=== PATIENT | female | born 1950 | race Caucasian/White ===

== ENCOUNTER → 2020-04-07 13:02 | Outpatient (BNVA) | payer MEDICARE, SELFPAY | PROVIDERS: Visit Provider Internal Medicine Cardiovascular Disease | DX: I44.7 Left bundle-branch block, unspecified (principal); I10 Essential (primary) hypertension; I49.3 Ventricular premature depolarization | CPT/HCPCS: 93005; 99212 ==

== ENCOUNTER 2020-05-04 12:17 | Emergency (ER) | payer MEDICARE, SELFPAY ==
[2020-05-04 12:25] VITALS: BP 156/80; PULSE 86; RESP 18; TEMP 37.1; O2SAT 98
[2020-05-04 12:33] VITALS: BP 195/103; PULSE 81; RESP 18; TEMP 37.2; O2SAT 97; BMI 20.9
--- NOTE | 2020-05-04 13:39 | ECG_ITS ---
Test Reason : HIGH BP Blood Pressure : / mmHG Vent. Rate : 071 BPM Atrial Rate : 071 BPM P-R Int : 180 ms QRS Dur : 136 ms QT Int : 434 ms P-R-T Axes : 074 -03 091 degrees QTc Int : 471 ms Normal sinus rhythm Left bundle branch block Abnormal ECG When compared with ECG of 26-SEP-2019 10:41, Premature ventricular complexes are no longer Present Referred By: Linda Washington Electronically Signed By:ISABEL GRIFFIN
--- NOTE | 2020-05-04 14:02 | ED_ITS ---
HPI - General Adult General Chief complaint: Recheck/Abnormal Lab/Rx Stated complaint: flucuating blood pressure,dizzy Time Seen by Provider: 05/04/20 13:38 Source: patient Mode of arrival: ambulatory Limitations: no limitations History of Present Illness HPI narrative: 70 y/o female with history of HTN, PVFC's, LBBB presents to the ED with poorly controlled BP at home for the last 3 days. She states for the last 3 days she has needed to take additional metoprolol for BP 180's -190's at home. She was just seen by Dr. Shaw 1 month ago and her Toprol XL was increased from 25 to 50 mg. She occasionally takes 12.5 mg of immediate release metoprolol when she gets symptomatic hypertension. This includes slight dizziness and headache. She can tell when her blood pressure is elevated. She denies chest pain, vision changes, SOB. MD complaint: high blood pressure Onset (ago): day(s) (3) Location: head Radiation: non-radiation Severity: mild Pain Consistency: intermittent Relieving factors: rest Exacerbating factors: other (anxiety) Associated symptoms: headaches Treatments prior to arrival: none Related Data Previous Rx's Medication Instructions Recorded metoprolol succinate 50 mg 50 mg PO DAILY 90 Days #90 tab 03/24/20 tablet,extended release 24 hr amlodipine 5 mg PO DAILY #30 tab 05/04/20 Allergies Allergy/AdvReac Type Severity Reaction Status Date / Time No Known Allergies Allergy Intermediate UNKNOWN Unverified 10/29/19 14:50 [NO KNOWN ALLERGIES] Review of Systems Review of Systems: Constitutional: No Fever, No Chills ENT/Mouth: No sore throat, No Rhinorrhea, No Swallowing Difficulty Eyes: No Eye Pain, No Swelling, No Redness, No vision changes Cardiovascular: No Chest Pain, No SOB, No Orthopnea, No Edema Respiratory: No Cough, No Sputum, No Wheezing, No dyspnea Gastrointestinal: No Nausea, No Vomiting, No Diarrhea, No abdominal Pain Musculoskeletal: No joint pain, No Myalgias Skin: No Skin Lesions, No rash Neuro: No Weakness, No Numbness, + Dizziness, + Headache Psych: + Anxiety/Panic, No Depression Endocrine: No Polyuria, No Polydipsia PMFSH Past Medical History Attestation statement: The following information was validated with the patient. Medical History HTN (hypertension) Left bundle branch block PVCs (premature ventricular contractions) Family History Family History (Updated 04/05/20 @ 17:10 by Babita Enrique Preston) Father No problems noted. Mother No problems noted. Social History Social History Alcohol intake: current Alcohol intake frequency: 0-2 drinks per day Alcohol type: beer Smoking Status: Former smoker Smoked in Last 30 Days: No Use of substances other than those prescribed or required for medical reasons: No Advance Directives: No Advance Directives Information Provided: No Physical Exam Vital Signs: Vital Signs: Last Vital Signs Temp 98.9 F 05/04/20 14:16 Pulse 75 05/04/20 14:28 Resp 14 05/04/20 14:16 BP 160/80 H 05/04/20 14:28 Pulse Ox 96 05/04/20 14:16 Body Mass Index 20.9 Appearance: Alert. Oriented X3. No acute distress. Eyes: Pupils equal, round and reactive to light. ENT: Pharynx normal. Neck: Normal inspection. Neck supple. CVS: Normal heart rate and rhythm. Pulses normal. Respiratory: No respiratory distress. Breath sounds normal. Abdomen: Soft and nontender. +BS x4 Skin: Skin warm and dry. Normal skin color. Normal skin turgor. No rashes. Extremities: No lower extremity edema. Neuro: Oriented X 3. No motor deficit. No sensory deficit. Steady gait. Course Course Course Narrative: 70 y/o female with history of HTN on Toprol XL, recently increased to 50 mg daily presents to the ER with high BP for the last 3 days. Slight dizziness and headaches at home when it is 180-190's systolic. She has taken extra immediate release lopressor with improvement. BP 190/100 on arrival. NO chest pain or headache at this time. Slight dizziness when walking. Will get EKG and lab workup. She appears well and exam is normal. Will give PO amlodipine and reassess. Reevaluation(s) Reevaluation #1: BP improved to 150-160's systolic after 5 mg PO amlopidine. Will plan to add this to her regimen and have her follow up with her provider this week. She is agreeable with plan and is stable for discharge at this time. Medical Decision Making Lab Data Result diagrams: 05/04/20 14:14 05/04/20 14:14 Labs: Lab Results 05/04/20 05/04/20 05/04/20 Range/Units 14:14 14:14 14:14 WBC 4.9 (4.8-10.8) X10*3/uL RBC 4.32 (4.20-5.50) X10*6/uL Hgb 13.3 (12.0-16.0) g/dl Hct 37.9 (37-47) % MCV 87.7 (80-98) fL MCH 30.8 (27.0-33.0) pg MCHC 35.1 H (31.0-35.0) g/dl RDW 11.9 (11.0-16.0) % Plt Count 268 (160-400) X10*3/uL MPV 8.4 L (9.4-12.3) fL Immature Gran % (Auto) 0.2 (0.0-0.4) % Neut % (Auto) 74.8 H (45-73) % Lymph % (Auto) 18.5 L (20-40) % Mitchell % (Auto) 5.7 (2-11) % Eos % (Auto) 0.6 (0-4) % Baso % (Auto) 0.2 (0-2) % Lymph # (Auto) 0.9 L (1.2-4.9) X10*3/uL Mitchell # (Auto) 0.3 (0.1-1.2) X10*3/uL Eos # (Auto) 0.0 (0.0-0.4) X10*3/uL Baso # (Auto) 0.0 (0.0-0.2) X10*3/uL Abs Immat Gran (auto) 0.01 (0.00-0.03) X10*3/uL Absolute Neuts (auto) 3.7 (2.0-8.3) X10*3/uL Absolute Nucleated RBC 0.000 (0.0-0.012) X10*3/uL Nucleated RBC % (auto) 0.0 (0.0-0.2) /100WBC Hold Blue Top SEE NOTE Sodium 134 L (135-145) mmol/L Potassium 4.3 (3.3-5.1) mmol/L Chloride 99 (96-108) mmol/L Carbon Dioxide 24 (22-29) mmol/L Anion Gap 15 (12-20) BUN 10 (9-16) mg/dL Creatinine 0.70 (0.5-1.4) mg/dL Estim Creat Clear Calc 68.6 Estimated GFR > 60 Random Glucose 104 (60-115) mg/dL Calcium 8.8 (8.4-10.2) mg/dL Magnesium 2.2 (1.6-2.6) mg/dL Troponin I High Sens (<3.5-17.0) ng/L 05/04/20 Range/Units 14:14 WBC (4.8-10.8) X10*3/uL RBC (4.20-5.50) X10*6/uL Hgb (12.0-16.0) g/dl Hct (37-47) % MCV (80-98) fL MCH (27.0-33.0) pg MCHC (31.0-35.0) g/dl RDW (11.0-16.0) % Plt Count (160-400) X10*3/uL MPV (9.4-12.3) fL Immature Gran % (Auto) (0.0-0.4) % Neut % (Auto) (45-73) % Lymph % (Auto) (20-40) % Mitchell % (Auto) (2-11) % Eos % (Auto) (0-4) % Baso % (Auto) (0-2) % Lymph # (Auto) (1.2-4.9) X10*3/uL Mitchell # (Auto) (0.1-1.2) X10*3/uL Eos # (Auto) (0.0-0.4) X10*3/uL Baso # (Auto) (0.0-0.2) X10*3/uL Abs Immat Gran (auto) (0.00-0.03) X10*3/uL Absolute Neuts (auto) (2.0-8.3) X10*3/uL Absolute Nucleated RBC (0.0-0.012) X10*3/uL Nucleated RBC % (auto) (0.0-0.2) /100WBC Hold Blue Top Sodium (135-145) mmol/L Potassium (3.3-5.1) mmol/L Chloride (96-108) mmol/L Carbon Dioxide (22-29) mmol/L Anion Gap (12-20) BUN (9-16) mg/dL Creatinine (0.5-1.4) mg/dL Estim Creat Clear Calc Estimated GFR Random Glucose (60-115) mg/dL Calcium (8.4-10.2) mg/dL Magnesium (1.6-2.6) mg/dL Troponin I High Sens < 3.5 (<3.5-17.0) ng/L ECG Data Attestation: I personally reviewed and interpreted this ECG as follows: Prior ECG tracings: available for review Interpretation: normal sinus rhythm, HR 71 bpm, LBBB, normal MS interval, unchanged from prior Discharge Plan Discharge Clinical Impression: Poorly-controlled hypertension Patient Disposition: Home, Self-Care Instructions: Hypertensive Crisis (ED), Hypertension (ED) Additional Instructions: Your lab workup today was unremarkable. Your EKG was unchanged. Your blood pressure responded well to amlodipine 5 mg. A one month supply of this has been sent to your pharmacy. Please follow up with your doctor as soon as possible for further management of your blood pressure. Monitor your blood pressure 2x per day - once in the morning 2 hours after your medications and once in the evening. Stick to a low salt diet. If you develop chest pain, severe headache, dizziness, blurry vision or any other concerning symptom call 911 or come back to the ER for further evaluation. Prescriptions: New amlodipine 5 mg tablet 5 mg PO DAILY Qty: 30 RF: 0 No Action metoprolol succinate 50 mg tablet extended release 24 hr 50 mg PO DAILY 90 Days Qty: 90 RF: 1
[2020-05-04 14:16] VITALS: BP 162/84; PULSE 68; RESP 14; TEMP 37.2; O2SAT 96
[2020-05-04 14:22] LABS: Basophils Percent Auto 0.2 % (0-2); Eosinophils Percent Auto 0.6 % (0-4); Hematocrit 37.9 % (37-47); Hemoglobin 13.3 g/dl (12.0-16.0); Imm Gran Abs Auto 0.01 X10*3/uL (0.00-0.03); Imm Gran Pct Auto 0.2 % (0.0-0.4); Lymphocytes Absolute Auto 0.9 X10*3/uL (1.2-4.9); Lymphocytes Percent Auto 18.5 % (20-40); MANUAL DIFF FLAG NO; Mean Corpuscular HGB Conc 35.1 g/dl (31.0-35.0); Mean Corpuscular Hemoglobin 30.8 pg (27.0-33.0); Mean Corpuscular Volume 87.7 fL (80-98); Mean Platelet Volume 8.4 fL (9.4-12.3); Monocytes Absolute Auto 0.3 X10*3/uL (0.1-1.2); Monocytes Percent Auto 5.7 % (2-11); Neutrophils Absolute Auto 3.7 X10*3/uL (2.0-8.3); Neutrophils Percent Auto 74.8 % (45-73); Platelet Count 268 X10*3/uL (160-400); Red Blood Count 4.32 X10*6/uL (4.20-5.50); Red Cell Distribution Width 11.9 % (11.0-16.0); White Blood Count 4.9 X10*3/uL (4.8-10.8)
[2020-05-04 14:28] VITALS: BP 160/80; PULSE 75
[2020-05-04] MEDS: amLODIPine Besylate 5 MG TABLET PO (14:28)
--- NOTE | 2020-05-04 14:44 | PC.NURSE ---
amb to br with steady gait, ekg done meds given as ordered
[2020-05-04 14:49] LABS: Anion Gap 15 (12-20); Blood Urea Nitrogen 10 mg/dL (9-16); Calcium 8.8 mg/dL (8.4-10.2); Carbon Dioxide 24 mmol/L (22-29); Chloride 99 mmol/L (96-108); Creatinine Clr Calc Pharmacy 68.6; Estimated Glomerular Filt Rate > 60; Glucose Random 104 mg/dL (60-115); Magnesium 2.2 mg/dL (1.6-2.6); Potassium 4.3 mmol/L (3.3-5.1); Sodium 134 mmol/L (135-145)
[2020-05-04 14:54] LABS: Troponin-I High Sensitivity < 3.5 ng/L (<3.5-17.0)
== END 2020-05-04 15:43 | disposition home or self-care (01) ==
PROVIDERS: Physician Assistant; Emergency Provider Emergency Medicine
DX: R42 Dizziness and giddiness (principal); I10 Essential (primary) hypertension; Z79.899 Other long term (current) drug therapy; Z87.891 Personal history of nicotine dependence; Z91.14 Patient's other noncompliance with medication regimen
CPT/HCPCS: 36415; 80048; 83735; 84484; 85025; 93005; 99283; 99284

== ENCOUNTER 2020-09-30 10:51 | Emergency (ER) | payer MEDICARE, SELFPAY ==
--- NOTE | ~2020-09-30 | CT_ITS ---
EXAMINATION: CT abdomen pelvis w con CLINICAL INFORMATION: Reason for Exam LLQ pain COMPARISON: No prior CT available for comparison. TECHNIQUE: Multidetector volumetric imaging was performed from the superior aspect of the liver through the pubic symphysis 85 mL Omnipaque 350 injected. Sagittal and coronal reformatted images were obtained on the technologist's workstation. This CT examination was performed using dose optimization techniques as appropriate, variously including the following: *Automated exposure control *Adjustment of mA and/or kV according to patient size (this includes techniques or standardized protocols for targeted exams where dose is matched to indication/reason for exam; i.e. extremities or head) *Use of iterative reconstruction technique DLP: 1243 mGy-cm FINDINGS: LOWER THORAX: Included lung bases are clear. HEPATOBILIARY: No focal hepatic lesions. No biliary ductal dilatation. GALLBLADDER: There are gallstones. SPLEEN: Spleen is normal in size. PANCREAS: No focal mass or ductal dilatation. STOMACH AND GASTROINTESTINAL TRACT: Stomach is grossly unremarkable. There is no bowel distention or thickening. No CT evidence of appendicitis. There is diverticulosis without evidence of acute diverticulitis. ADRENALS: No adrenal nodules. KIDNEYS/URETERS: No hydronephrosis, stones or solid mass lesions. URINARY BLADDER: Partially decompressed. PELVIC VISCERA: Uterus is prominent, there is a probably thickening of the endometrial stripe. PERITONEUM: No free air or fluid. LYMPH NODES: No lymphadenopathy. VASCULAR:Abdominal aorta normal in size, no aneurysm found. BONES, ABDOMINAL WALL AND SOFT TISSUES: Age-appropriate changes of the spine and skeletal system, no destructive osteolytic or osteosclerotic bone lesion found CT/CT abdomen pelvis w con IMPRESSION: 1. No CT evidence of acute intra-abdominal process. No kidney stone or hydronephrosis. 2. There is thickening of the endometrial canal somewhat heterogeneous, attention to follow-up pelvic ultrasound recommended. 3. Diverticulosis without evidence of acute diverticulitis. 4. Cholelithiasis.
[2020-09-30 11:26] VITALS: BP 179/96; PULSE 85; RESP 18; TEMP 36.8; O2SAT 100; BMI 21.3
--- NOTE | 2020-09-30 11:29 | ECG_ITS ---
Test Reason : SIDE PAIN Blood Pressure : / mmHG Vent. Rate : 078 BPM Atrial Rate : 078 BPM P-R Int : 180 ms QRS Dur : 134 ms QT Int : 398 ms P-R-T Axes : 062 -14 097 degrees QTc Int : 453 ms Normal sinus rhythm Left bundle branch block Abnormal ECG When compared with ECG of 04-MAY-2020 14:06, No significant change was found Referred By: Generic ED Physician Electronically Signed By:SINDY WONG
[2020-09-30 12:18] LABS: MANUAL DIFF FLAG NO
[2020-09-30 12:22] LABS: Basophils Percent Auto 0.2 % (0-2); Eosinophils Absolute Auto 0.1 X10*3/uL (0.0-0.4); Eosinophils Percent Auto 1.1 % (0-4); Hematocrit 38.3 % (37-47); Hemoglobin 13.2 g/dl (12.0-16.0); Imm Gran Abs Auto 0.02 X10*3/uL (0.00-0.03); Imm Gran Pct Auto 0.4 % (0.0-0.4); Lymphocytes Absolute Auto 0.7 X10*3/uL (1.2-4.9); Mean Corpuscular HGB Conc 34.5 g/dl (31.0-35.0); Mean Corpuscular Hemoglobin 30.3 pg (27.0-33.0); Mean Platelet Volume 8.1 fL (9.4-12.3); Monocytes Absolute Auto 0.3 X10*3/uL (0.1-1.2); Monocytes Percent Auto 5.5 % (2-11); Neutrophils Absolute Auto 4.4 X10*3/uL (2.0-8.3); Neutrophils Percent Auto 80.8 % (45-73); Platelet Count 281 X10*3/uL (160-400); Red Blood Count 4.35 X10*6/uL (4.20-5.50); White Blood Count 5.5 X10*3/uL (4.8-10.8)
[2020-09-30 12:47] LABS: Troponin-I High Sensitivity < 3.5 ng/L (<3.5-17.0)
[2020-09-30 12:55] LABS: Anion Gap 12 (12-20); Blood Urea Nitrogen 13 mg/dL (9-16); Calcium 9.2 mg/dL (8.4-10.2); Carbon Dioxide 26 mmol/L (22-29); Chloride 100 mmol/L (96-108); Creatinine Clr Calc Pharmacy 65.2; Estimated Glomerular Filt Rate > 60; Glucose Random 118 mg/dL (60-115); Potassium 4.5 mmol/L (3.3-5.1); Sodium 133 mmol/L (135-145)
--- NOTE | 2020-09-30 15:17 | ED_ITS ---
HPI - General Adult General Chief complaint: Abdominal Pain Stated complaint: hbp, low lt abd pain Time Seen by Provider: 09/30/20 14:54 Source: patient Mode of arrival: ambulatory Limitations: no limitations History of Present Illness HPI narrative: 70-year-old presents for 3 episodes of pain in her left lower quadrant that only lasted for seconds, and then she felt warm, and shaky, and like her blood pressure was high. Reports her ?insides got trembly?. Reports chills and a fever of 99.8 at home. Patient has no chest pain, no shortness of breath, no nausea, vomiting, diarrhea, no urinary symptoms, no vaginal bleeding. Last bowel movement was normal. No headache, no blurry vision. Patient was seen in April 2020, for poorly controlled hypertension, amlodipine was added to her blood pressure medications. Patient is currently on 50 mg of metoprolol, 5 mg amlodipine, 5 mg of lisinopril. She took all of her medications this morning. In addition, patient states that she normally drinks 4-6 drinks a day. Her last drink was 3 days ago. She has never gone through alcohol withdrawal. Related Data Previous Rx's Medication Instructions Recorded metoprolol succinate 50 mg 50 mg PO DAILY 90 Days #90 tab 03/24/20 tablet,extended release 24 hr amlodipine 5 mg tablet 5 mg PO DAILY #30 tab 05/04/20 Allergies Allergy/AdvReac Type Severity Reaction Status Date / Time No Known Allergies Allergy Intermediate UNKNOWN Unverified 10/29/19 14:50 [NO KNOWN ALLERGIES] Review of Systems Constitutional: Constitutional: Denies body ache(s), Reports chills, Denies fatigue, Reports fever(s), Denies headache(s), Denies malaise and Denies weakness Eyes: Eyes: Denies blurry vision, Denies change in vision and Denies diplopia ENT: Denies vertigo, Denies dizziness, Denies otalgia, Denies headache(s), Denies mouth pain, Denies post nasal drip, Denies sinus pain, Denies sinus pressure, Denies sore throat and Denies throat swelling Cardiovascular: Cardiovascular: Denies chest pain, Denies syncope, Denies leg edema, Denies lightheadedness, Denies Loss of Consciousness, Denies palpitations and Denies dyspnea Respiratory: Respiratory: Denies chest congestion, Denies cough and Denies dyspnea Gastrointestinal: Gastrointestinal: Reports abdominal pain, Denies hematochezia, Denies coffee ground emesis, Denies constipation, Denies diarrhea and Denies vomiting Genitourinary: Genitourinary: Reports no additional female genitourinary complaints, Denies hematuria, Denies dysuria, Denies pelvic pain, Denies urinary incontinence, Denies urinary urgency and Denies vaginal discharge Musculoskeletal: Musculoskeletal: Reports no additional musculoskeletal complaints Integumentary/Breasts: Skin/Breast: Denies erythema and Denies rash Neurologic: Reports Abnormal speech present, Denies confusion, Denies vertigo, Denies dizziness, Denies syncope, Denies headache(s), Denies focal weakness, Denies seizure-like activity, Denies Sensory deficit (Neuro) and Denies weakness Comments: tremors Psychiatric: Psychiatric: Reports anxiety, Denies confusion and Denies dep ression Endocrine: Endocrine: Denies fatigue and Denies palpitations Allergic/Immunologic: Allergic/Immunologic: Denies throat swelling PMFSH Past Medical History Medical History HTN (hypertension) Left bundle branch block PVCs (premature ventricular contractions) Family History Family History (Updated 04/05/20 @ 17:10 by YOUNG Wood) Father No problems noted. Mother No problems noted. Social History Social History Alcohol intake: current Alcohol intake frequency: 0-2 drinks per day Alcohol type: beer Advance Directives: No Advance Directives Information Provided: No Physical Exam Vital Signs: Vital Signs: Last Vital Signs Temp 98.2 F 09/30/20 11:26 Pulse 85 09/30/20 11:26 Resp 18 09/30/20 11:26 BP 179/96 H 09/30/20 11:26 Pulse Ox 100 09/30/20 11:26 Body Mass Index 21.3 Const: General: No confusion Nutritional Appearance: well nourished Orientation/consciousness: patient oriented x3 and No confusion Limitations: no limitations HENMT: Head: Yes normal to inspection, Yes normocephalic and Yes atraumatic Ears: hearing grossly normal bilaterally, external ears normal, TM's normal bilaterally and EAC's normal General nose exam: Normal external nose present Face and sinus: Yes normal facial exam and Yes sinuses nontender Mouth: Normal oral and palatal mucosa present Throat: Yes posterior oropharynx normal Eyes: Conjunctivae: conjunctivae normal Pupils: Equal, round and reactive pupils present EOM: EOMs intact bilaterally and No Nystagmus present Neck: Neck: Yes full ROM, Yes no lymphadenopathy and Yes supple Resp: Effort & Inspection: normal respiratory effort and able to speak in complete sentences Auscultation: clear to auscultation bilaterally, no crackles, no rales, no rhonchi and no wheezes Cardio: Rate: regular rate Rhythm: regular rhythm Heart sounds: S1 normal heart sound present and S2 normal heart sound present GI: Inspection: Yes normal to inspection Palpation (GI): Soft to palpation, nontender, no guarding and not rigid Percussion: Yes normal to percussion Auscultation: normal bowel sounds Skin: General skin exam: no rashes or lesions noted Neuro: Other: mild hand tremors General: patient oriented x3 and No confusion Cranial nerves: Yes CN's II-XII intact bilaterally, Yes Facial sensation intact/muscles of mastication intact, Yes Equal, round and reactive pupils present, Yes Bilaterally intact EOM present, Yes Nystagmus not present, Yes Normal facial strength present, Yes Midline tongue present and No Nystagmus present Cognition (Neuro): normal cognition Speech: Abnormal speech present Gait exam (Neuro): Normal gait present Motor exam (neuro): 5/5 motor strength present throughout Sensory Exam: No Sensory deficit (Neuro) Pupils: Normal pupillary reactivity/response: bilateral Extrem: General: Yes normal to inspection and Yes full ROM Psych: Appearance: grossly normal Affect: normal affect Attitude: cooperative Thought process: Normal thought process present Course Course Course Narrative: 70-year-old female with a past medical history of hypertension that has been poorly controlled presents with 3 episodes today of left-sided abdominal pain that lasts for seconds, and then a ?increase in my blood pressure? where she feels shaky and warm. Her last drink was 3 days ago. EKG shows normal sinus with a LBBB, troponin is negative, sodium 133. Negative Covid. Will get magnesium level, give Ativan, get alcohol level, start IV fluids, scanned her abdomen. Patient's blood pressure was initially 179/96, on recheck her blood pressure is 152/72 Ct shows: 1. No CT evidence of acute intra-abdominal process. No kidney stone or hydronephrosis. ? 2. There is thickening of the endometrial canal somewhat heterogeneous, attention to follow-up pelvic ultrasound recommended. ? 3. Diverticulosis without evidence of acute diverticulitis. ? 4. Cholelithiasis. On further re-examined, patient's shakiness has resolved without Ativan. Patient's blood pressure is now 135/73. Counseled to follow-up with primary care provider for outpatient pelvic ultrasound, and blood pressure management. Medical Decision Making Lab Data Result diagrams: 09/30/20 12:12 09/30/20 12:12 Labs: Lab Results 09/30/20 09/30/20 09/30/20 Range/Units 12:12 12:12 12:12 WBC 5.5 (4.8-10.8) X10*3/uL RBC 4.35 (4.20-5.50) X10*6/uL Hgb 13.2 (12.0-16.0) g/dl Hct 38.3 (37-47) % MCV 88.0 (80-98) fL MCH 30.3 (27.0-33.0) pg MCHC 34.5 (31.0-35.0) g/dl RDW 12.0 (11.0-16.0) % Plt Count 281 (160-400) X10*3/uL MPV 8.1 L (9.4-12.3) fL Immature Gran % (Auto) 0.4 (0.0-0.4) % Neut % (Auto) 80.8 H (45-73) % Lymph % (Auto) 12.0 L (20-40) % Cole % (Auto) 5.5 (2-11) % Eos % (Auto) 1.1 (0-4) % Baso % (Auto) 0.2 (0-2) % Lymph # (Auto) 0.7 L (1.2-4.9) X10*3/uL Cole # (Auto) 0.3 (0.1-1.2) X10*3/uL Eos # (Auto) 0.1 (0.0-0.4) X10*3/uL Baso # (Auto) 0.0 (0.0-0.2) X10*3/uL Abs Immat Gran (auto) 0.02 (0.00-0.03) X10*3/uL Absolute Neuts (auto) 4.4 (2.0-8.3) X10*3/uL Absolute Nucleated RBC 0.000 (0.0-0.012) X10*3/uL Nucleated RBC % (auto) 0.0 (0.0-0.2) /100WBC Sodium 133 L (135-145) mmol/L Potassium 4.5 (3.3-5.1) mmol/L Chloride 100 (96-108) mmol/L Carbon Dioxide 26 (22-29) mmol/L Anion Gap 12 (12-20) BUN 13 (9-16) mg/dL Creatinine 0.74 (0.5-1.4) mg/dL Estim Creat Clear Calc 65.2 Estimated GFR > 60 Random Glucose 118 H (60-115) mg/dL Calcium 9.2 (8.4-10.2) mg/dL Magnesium (1.6-2.6) mg/dL Troponin I High Sens < 3.5 (<3.5-17.0) ng/L Urine Color Urine Appearance Urine pH (5.0-8.0) Ur Specific [place] (1.005-1.025) Urine Protein (NEG-TRACE) MG/DL Urine Glucose (UA) (NEG) MG/DL Urine Ketones (NEG) MG/DL Urine Blood (NEG) Urine Nitrite (NEG) Ur Leukocyte Esterase (NEG) Ethyl Alcohol mg/dL COVID-19 ([facility]) (Negative) COVID-19 Clin Com 09/30/20 09/30/20 09/30/20 Range/Units 16:05 16:05 16:06 WBC (4.8-10.8) X10*3/uL RBC (4.20-5.50) X10*6/uL Hgb (12.0-16.0) g/dl Hct (37-47) % MCV (80-98) fL MCH (27.0-33.0) pg MCHC (31.0-35.0) g/dl RDW (11.0-16.0) % Plt Count (160-400) X10*3/uL MPV (9.4-12.3) fL Immature Gran % (Auto) (0.0-0.4) % Neut % (Auto) (45-73) % Lymph % (Auto) (20-40) % Cole % (Auto) (2-11) % Eos % (Auto) (0-4) % Baso % (Auto) (0-2) % Lymph # (Auto) (1.2-4.9) X10*3/uL Cole # (Auto) (0.1-1.2) X10*3/uL Eos # (Auto) (0.0-0.4) X10*3/uL Baso # (Auto) (0.0-0.2) X10*3/uL Abs Immat Gran (auto) (0.00-0.03) X10*3/uL Absolute Neuts (auto) (2.0-8.3) X10*3/uL Absolute Nucleated RBC (0.0-0.012) X10*3/uL Nucleated RBC % (auto) (0.0-0.2) /100WBC Sodium (135-145) mmol/L Potassium (3.3-5.1) mmol/L Chloride (96-108) mmol/L Carbon Dioxide (22-29) mmol/L Anion Gap (12-20) BUN (9-16) mg/dL Creatinine (0.5-1.4) mg/dL Estim Creat Clear Calc Estimated GFR Random Glucose (60-115) mg/dL Calcium (8.4-10.2) mg/dL Magnesium 2.2 (1.6-2.6) mg/dL Troponin I High Sens (<3.5-17.0) ng/L Urine Color Urine Appearance Urine pH (5.0-8.0) Ur Specific [place] (1.005-1.025) Urine Protein (NEG-TRACE) MG/DL Urine Glucose (UA) (NEG) MG/DL Urine Ketones (NEG) MG/DL Urine Blood (NEG) Urine Nitrite (NEG) Ur Leukocyte Esterase (NEG) Ethyl Alcohol < 10 mg/dL COVID-19 ([facility]) Negative (Negative) COVID-19 Clin Com See Note 09/30/20 Range/Units 17:44 WBC (4.8-10.8) X10*3/uL RBC (4.20-5.50) X10*6/uL Hgb (12.0-16.0) g/dl Hct (37-47) % MCV (80-98) fL MCH (27.0-33.0) pg MCHC (31.0-35.0) g/dl RDW (11.0-16.0) % Plt Count (160-400) X10*3/uL MPV (9.4-12.3) fL Immature Gran % (Auto) (0.0-0.4) % Neut % (Auto) (45-73) % Lymph % (Auto) (20-40) % Cole % (Auto) (2-11) % Eos % (Auto) (0-4) % Baso % (Auto) (0-2) % Lymph # (Auto) (1.2-4.9) X10*3/uL Cole # (Auto) (0.1-1.2) X10*3/uL Eos # (Auto) (0.0-0.4) X10*3/uL Baso # (Auto) (0.0-0.2) X10*3/uL Abs Immat Gran (auto) (0.00-0.03) X10*3/uL Absolute Neuts (auto) (2.0-8.3) X10*3/uL Absolute Nucleated RBC (0.0-0.012) X10*3/uL Nucleated RBC % (auto) (0.0-0.2) /100WBC Sodium (135-145) mmol/L Potassium (3.3-5.1) mmol/L Chloride (96-108) mmol/L Carbon Dioxide (22-29) mmol/L Anion Gap (12-20) BUN (9-16) mg/dL Creatinine (0.5-1.4) mg/dL Estim Creat Clear Calc Estimated GFR Random Glucose (60-115) mg/dL Calcium (8.4-10.2) mg/dL Magnesium (1.6-2.6) mg/dL Troponin I High Sens (<3.5-17.0) ng/L Urine Color STRAW Urine Appearance CLEAR Urine pH 6.5 (5.0-8.0) Ur Specific [place] <= 1.005 (1.005-1.025) Urine Protein NEG (NEG-TRACE) MG/DL Urine Glucose (UA) NEG (NEG) MG/DL Urine Ketones NEG (NEG) MG/DL Urine Blood NEG (NEG) Urine Nitrite NEG (NEG) Ur Leukocyte Esterase NEG (NEG) Ethyl Alcohol mg/dL COVID-19 ([facility]) (Negative) COVID-19 Clin Com ECG Data Interpretation: EKG shows normal sinus rhythm with a left bundle-branch block. Normal axis. 70 beats per minute, NH interval 180, QRS 134, QTC 453. There is some artifact, but no ST elevations or depressions Discharge Plan Discharge Clinical Impression: HTN (hypertension) Qualifiers: Hypertension type: primary hypertension Qualified Code(s): I10 - Essential (primary) hypertension Abdominal pain Qualifiers: Abdominal location: left lower quadrant Qualified Code(s): R10.32 - Left lower quadrant pain Patient Disposition: Home, Self-Care Instructions: Chronic Hypertension (ED), Abdominal Pain (ED) Additional Instructions: Please call your primary care provider to follow-up on your high blood pressure, and the finding on your CT scan of the endometrial thickening. Please refrain from drinking alcohol, as this can make your blood pressure worse. Please return to the emergency room for any new or concerning symptoms. Prescriptions: No Action metoprolol succinate 50 mg tablet extended release 24 hr 50 mg PO DAILY 90 Days Qty: 90 RF: 1 amlodipine 5 mg tablet 5 mg PO DAILY Qty: 30 RF: 0
[2020-09-30] MEDS: 0.9 % Sodium Chloride 1,000 ML 999 ML IV (16:20)
[2020-09-30 16:34] LABS: Ethanol < 10 mg/dL
[2020-09-30] MEDS: iohexoL 350 MG/ML 100 ML INFUS..BTL IV (16:35)
[2020-09-30 16:37] LABS: Magnesium 2.2 mg/dL (1.6-2.6)
[2020-09-30 16:54] LABS: COVID-19 Test Negative (Negative)
[2020-09-30 17:57] LABS: Glucose Urine UA NEG (NEG); Leukocyte Esterase Urine NEG (NEG); Nitrite Urine NEG (NEG); PH 6.5 (5.0-8.0); Specific Gravity - Urine <= 1.005 (1.005-1.025); Urine Blood NEG (NEG); Urine Ketones NEG (NEG); Urine Protein NEG (NEG-TRACE)
[2020-09-30 17:59] LABS: Appearance Urine CLEAR; Color Urine STRAW
== END 2020-09-30 19:12 | disposition home or self-care (01) ==
PROVIDERS: Physician Assistant; Emergency Provider Internal Medicine; PCP Nurse Practitioner Family
DX: I10 Essential (primary) hypertension (principal); R10.32 Left lower quadrant pain; Z20.822 Contact with and (suspected) exposure to COVID-19; Z79.899 Other long term (current) drug therapy
CPT/HCPCS: 36415; 74177; 80048; 81003; 82077; 83735; 84484; 85025; 87635; 93005; 99283; 99284; Q9967

== ENCOUNTER → 2021-03-22 08:14 | Outpatient (REF) | payer MEDICARE, SELFPAY ==
--- NOTE | 2021-03-22 08:18 | CA_ITS ---
Transthoracic Echocardiogram Patient (Last, First, Middle): Kalina Delarosa M Gender: Female Date of : 1950 Age: 71 Procedure Date: 03/22/2021 Procedure Type: Transthoracic Echocardiogram Location: OP Height: 167.64 cm Weight: 61.24 kg BSA: 1.69 m2 Heart Rate: bpm BP: 122 / 70 mmHg Barrel Cutter: TESSA Referring MD: Rl Shaw MD Solar Fabrication Technician: Rl Shaw MD Symptoms: I10 - Essential (primary) hypertension Study Quality: Good ECG Rhythm: Sinus Conclusions: - 1. Normal LV systolic function with grade 1 diastolic dysfunction 2. Normal cardiac valvular Doppler 3. Normal RV systolic pressure 4. No gross pericardial effusion Findings Left Ventricle Normal left ventricular size, thickness, and systolic function. The visually estimated ejection fraction is between 55-60%. There is paradoxical septal motion consistent with a left bundle branch block. Spectral Doppler is indicative of an impaired relaxation filling pattern. E/E prime ratio is <8, consistent with normal filling pressures. Evidence suggests grade I (mild) diastolic dysfunction. Right Ventricle Normal right ventricular cavity size and systolic function. Atria Both atria are normal in size. There is lipomatous hypertrophy of the interatrial septum. There is a mobile atrial septum noted. There is no evidence of interatrial shunt. Aortic Valve There is mild calcification of the aortic valve. There are fibrocalcifications on the aortic valve leaflets. There is no aortic valve stenosis. There is no aortic valve regurgitation. Mitral Valve Normal mitral valve structure and function. There is trace mitral valve regurgitation. There is no mitral valve stenosis. Pulmonic Valve The pulmonic valve was not well visualized. Tricuspid Valve Normal tricuspid valve structure. There is trace tricuspid valve regurgitation. The right ventricular systolic pressure is normal. The right ventricular systolic pressure is 25 mmHg. Normal right atrial pressure. There is no evidence of pulmonary hypertension. Great Vessels All visible segments of the aorta are normal in size. The pulmonary artery was not well visualized. Venous The inferior vena cava is normal in size and collapses greater than 50% with inspiration. Pericardium/Pleural There is no evidence of pericardial effusion. Prior Study Comparison Changes noted compared to prior study dated: 08/26/2019. LV systolic function has marginally improved Measurements 2D Linear Measurements IVSd: 1.06 0.6-0.9/0.6-1.0 cm LVIDd: 4.42 3.9-5.3/4.2-5.9 cm LVIDd Index: 2.62 2.4-3.2/2.2-3.1 cm/m2 LVIDs: 2.57 2.0-3.6 cm LVPWd: 0.93 0.7-1.1 cm Ao Root: 3.40 2.1-3.5 cm LA Diam: 2.90 2.7-3.8/3.0-4.0 cm LAIDs Index: 1.72 1.5-2.3 cm/m2 LV Mass: 183.98 67-162/88-224 g LV Mass Index: 108.86 43-95/49-115 g/m2 LVOT Diam: 2.10 3.0+(-)1.3 cm 2D Systolic Function EF 4C: 55.00 >55% EF 2C: 62.30 >55% EF BiP: 58.40 >55% Mitral Valve MV Pk E: 0.62 MV PK A: 0.77 MV Decel Time: 223.00 E/A: 0.80 E'Lateral: 5.87 E'Medial: 6.09 E/E' Med: 10.10 E/E' Lat: 10.50 PHT: 65.00 MVA PHT: 3.38 Decel Schley: 2.77 Aortic Valve AoV Pk Noah: 1.33 AoV Mn Noah: 1.00 AoV VTI: 0.30 AoV Pk Grad: 7.00 Aov Mn Grad: 4.00 ELENA Cont.VTI: 2.86 LVOT LVOT Pk Noah: 1.11 LVOT Mn Noah: 0.83 LVOT VTI: 0.25 LVOT Pk Grad: 5.00 LVOT Mn Grad: 3.00 LVOT Diam: 2.10 LVOT Area: 3.46 Diastolic Function MV Pk E: 0.62 MV Pk A: 0.77 E/A: 0.80 E'Medial: 6.09 E/E' Med: 10.10 E' Laterial: 5.87 E/E' Lat: 10.50 Right Ventricle TAPSE (mm): 22.20 TVS' Noah: 12.30 Tricuspid Valve TR Pk Noah: 2.33 TR Pk Grad: 22.00 RA Press: 3.00 RVSP: 25.00 Great Vessels Aorta Ao Root-2D: 3.40 2.0-3.7 cm Ao Asc: 3.10 2.1-3.4 cm Ao Arch: 2.90 Updated in Other Vendor System with Status of Final lR Shaw MD electronically signed on 03/22/2021 1:16:07 PM with status of Final
== END ==
LOC: HO.CARD 08:14
PROVIDERS: PCP Internal Medicine; Visit Provider Internal Medicine Cardiovascular Disease
DX: I44.7 Left bundle-branch block, unspecified (principal); I49.3 Ventricular premature depolarization; I10 Essential (primary) hypertension
CPT/HCPCS: 93306

== ENCOUNTER → 2021-04-10 12:32 | Outpatient (BNVA) | payer MEDICARE, SELFPAY | PROVIDERS: PCP Internal Medicine; Referring Provider Internal Medicine; Visit Provider Internal Medicine Cardiovascular Disease | DX: I44.7 Left bundle-branch block, unspecified (principal); I10 Essential (primary) hypertension; R42 Dizziness and giddiness | CPT/HCPCS: 99212 ==

== ENCOUNTER → 2021-05-08 10:46 | Outpatient (REF) | payer MEDICARE, SELFPAY ==
--- NOTE | 2021-05-08 10:50 | HM_ITS ---
* Total monitoring time 3 days. * Underlying rhythm is sinus. Average rate 69/Min; range 57 to 114/Min. * No atrial fibrillation or flutter or AV blocks or pauses. * Rare supraventricular ectopy. One brief run. No sustained episodes. * Rare ventricular ectopy. * No patient events. MTDD
== END ==
LOC: HO.CARD 10:46
PROVIDERS: Visit Provider Internal Medicine Cardiovascular Disease
DX: R42 Dizziness and giddiness (principal)
CPT/HCPCS: 93242

== ENCOUNTER → 2022-04-16 12:13 | Outpatient (BNVA) | payer MEDICARE, SELFPAY | PROVIDERS: PCP Internal Medicine; Referring Provider Internal Medicine; Visit Provider Internal Medicine Cardiovascular Disease | DX: I44.7 Left bundle-branch block, unspecified (principal); I49.3 Ventricular premature depolarization; I10 Essential (primary) hypertension; R94.31 Abnormal electrocardiogram [ECG] [EKG] | CPT/HCPCS: 93005; 99212 ==

== ENCOUNTER → 2023-04-08 09:48 | Outpatient (REF) | payer MEDICARE, SELFPAY ==
--- NOTE | 2023-04-08 09:51 | CA_ITS ---
Transthoracic Echocardiogram Patient (Last, First, Middle): Kalina Delarosa M Gender: Female Date of : 1950 Age: 73 Procedure Date: 04/08/2023 Procedure Type: Transthoracic Echocardiogram Location: OP Height: 167. cm Weight: 57.41 kg BSA: 1.64 m2 Heart Rate: 61 bpm BP: 135 / 70 mmHg Community Nutrition Educator: MAKSIM Referring MD: Rl Shaw MD Symptoms: I44.7 - Left bundle-branch block, unspecified Study Quality: Good ECG Rhythm: Sinus Conclusions: - The left ventricular systolic function is normal. The calculated ejection fraction is 67% by biplane method. - No obvious valvular pathology seen on this study. Findings Left Ventricle Normal left ventricular cavity size. There is mildly increased left ventricular wall thickness. The left ventricular systolic function is normal. The calculated ejection fraction is 67% by biplane method. There is no evidence of regional wall motion abnormalities. Diastolic function is normal for age. There is moderate septal asymmetric hypertrophy. LV peak GLS -17.2%. Right Ventricle Normal right ventricular cavity size and systolic function. Atria Both atria are normal in size. Aortic Valve There is a normal trileaflet aortic valve. There is mild calcification of the aortic valve. There is no aortic valve stenosis. There is no aortic valve regurgitation. Mitral Valve The mitral valve appears normal. There is no mitral valve regurgitation. There is no mitral valve stenosis. Pulmonic Valve The pulmonic valve is likely normal. Tricuspid Valve There is trace tricuspid valve regurgitation. There is no evidence of pulmonary hypertension. Great Vessels The asc aorta is normal in size. Venous The inferior vena cava is normal in size and collapses greater than 50% with inspiration. Pericardium/Pleural There is no evidence of pericardial effusion. Prior Study Comparison No significant change compared to prior study dated: 03/22/2021. Recommendations, Care & Conclusions No obvious valvular pathology seen on this study. Measurements 2D Linear Measurements IVSd: 1.33 0.6-0.9/0.6-1.0 cm LVIDd: 3.61 3.9-5.3/4.2-5.9 cm LVIDd Index: 2.20 2.4-3.2/2.2-3.1 cm/m2 LVIDs: 2.36 2.0-3.6 cm LVPWd: 1.18 0.7-1.1 cm LA Diam: 2.90 2.7-3.8/3.0-4.0 cm LAIDs Index: 1.77 1.5-2.3 cm/m2 LV Mass: 189.46 67-162/88-224 g LV Mass Index: 115.53 43-95/49-115 g/m2 LVOT Diam: 2.00 3.0+(-)1.3 cm 2D Systolic Function EF 4C: 63.20 >55% EF 2C: 66.40 >55% EF BiP: 66.50 >55% Mitral Valve MV Pk E: 0.90 MV PK A: 0.71 MV Decel Time: 257.00 E/A: 1.30 E'Lateral: 6.85 E'Medial: 4.79 E/E' Med: 18.80 E/E' Lat: 13.10 PHT: 75.00 MVA PHT: 2.93 Decel [place]: 3.50 Aortic Valve AoV Pk Noah: 1.31 AoV Mn Noah: 1.00 AoV VTI: 0.35 AoV Pk Grad: 7.00 Aov Mn Grad: 4.00 ELENA Cont.VTI: 2.85 LVOT LVOT Pk Noah: 1.28 LVOT Mn Noah: 0.93 LVOT VTI: 0.31 LVOT Pk Grad: 7.00 LVOT Mn Grad: 4.00 LVOT Diam: 2.00 LVOT Area: 3.14 Diastolic Function MV Pk E: 0.90 MV Pk A: 0.71 E/A: 1.30 E'Medial: 4.79 E/E' Med: 18.80 E' Laterial: 6.85 E/E' Lat: 13.10 Right Ventricle TAPSE (mm): 24.80 TVS' Noah: 12.20 Tricuspid Valve TR Pk Noah: 1.88 TR Pk Grad: 14.00 RA Press: 3.00 RVSP: 17.00 Great Vessels Aorta Sinus of Valsalva: 3.50 2.0-3.5 cm Ao Asc: 3.40 2.1-3.4 cm Pulmonary Valve PV Pk Noah: 1.05 Peak PV Grad: 4.00 Updated in Other Vendor System with Status of Final Corbin Decker MD electronically signed on 04/09/2023 10:30:22 AM with status of Final
== END ==
LOC: HO.CARD 09:48
PROVIDERS: Visit Provider Internal Medicine Cardiovascular Disease
DX: I44.7 Left bundle-branch block, unspecified (principal)
CPT/HCPCS: 93306; 93356

== ENCOUNTER → 2023-04-08 09:51 | Outpatient (BNV) | payer MEDICARE, SELFPAY | PROVIDERS: Visit Provider Internal Medicine | DX: I35.8 Other nonrheumatic aortic valve disorders (principal) | CPT/HCPCS: 93306 ==

== ENCOUNTER 2023-04-15 10:34 | Outpatient (AMB) | payer MEDICARE, SELFPAY ==
--- NOTE | 2023-04-15 10:39 | A.OFFVIS_ITS ---
Intake Vital Signs 04/15/23 10:40 Height 5 ft 6 in Weight 125 lb 10.616 oz BMI 20.3 BP 126/74 Blood Pressure Location Lt brachial Position Sitting Pulse 84 Pulse Source Monitor Intake Visit Reasons: 1 yr f/ up after echo Intake Note: 1 year follow up with EKG Allergies No Known Allergies [NO KNOWN ALLERGIES] Allergy (Intermediate, Verified 04/15/23 10:44) UNKNOWN Medication List - Last Reconciled 04/15/23 by Rl Shaw MD amlodipine 5 mg PO BID calcium carbonate-vitamin D3 600 mg-10 mcg (400 unit) 1 tab PO BID metoprolol succinate ER 50 mg PO DAILY valsartan 40 mg PO DAILY HPI HPI Comments History of Present Illness Details Kalina comes for follow-up. Her recent echocardiogram shows normal LV ejection fraction at 67%. She does have mild LVH consistent with mild hypertensive heart disease. She takes all her medications. Denies any lightheadedness, syncope. No exertional chest pain or shortness of breath. She has no orthopnea, PND, leg edema. She does not have any symptoms of skipped heartbeats. [facility] Medical History PVCs (premature ventricular contractions) HTN (hypertension) Left bundle branch block Family History Father No problems noted. Mother No problems noted. Social History Alcohol intake: current Alcohol intake frequency: 0-2 drinks per day Alcohol type: beer Review of Systems Const Denies chills, Denies fatigue, Denies fever(s), Denies frequent falls, Denies weakness, Denies weight gain and Denies weight loss ENT Denies dizziness Card Denies chest pain, Denies leg edema, Denies lightheadedness, Denies palpitations, Denies dyspnea, Denies dyspnea on exertion, Denies orthopnea and Denies other (loss of consciousness) Resp Denies cough, Denies dyspnea and Denies dyspnea on exertion GI Denies hematochezia and Denies change in stool character Musc Denies abnormal gait, Denies muscle weakness, Denies numbness, Denies radiating pain into limb and Denies tingling Neuro Denies abnormal gait, Denies dizziness, Denies frequent falls, Denies numbness, Denies tingling and Denies weakness Endo Denies fatigue and Denies palpitations Physical Exam Vital Signs: Last Vital Signs Pulse 84 04/15/23 10:40 BP 126/74 04/15/23 10:40 BMI result Body Mass Index 20.3 Const General: cooperative, comfortable, no acute distress, alert, awake, Physically active and well groomed Nutritional Appearance: thin Orientation/consciousness: patient oriented x3 Limitations: no limitations Neck Neck: Yes trachea midline, Yes supple and Yes no JVD Resp Effort & Inspection: normal respiratory effort Auscultation: clear to auscultation bilaterally Cardio Jugular venous distension: no JVD Palpation: normal PMI Rate: regular rate Rhythm: regular rhythm Heart sounds: S1 normal heart sound present and S2 normal heart sound present GI Auscultation: normal bowel sounds Skin General skin exam: no rashes or lesions noted Neuro General: patient oriented x3 and no focal motor deficits Extrem General: Yes no clubbing, cyanosis or edema Psych Appearance: grossly normal Office Procedures EKG Details: EKG shows normal sinus rhythm with left bundle-branch block at 84 beats per minute [id number], Complete Assessment & Plan Assessment & Plan (1) Left bundle branch block: Code(s): I44.7 - Left bundle-branch block, unspecified Plan: Chronic left bundle-branch block with preserved LV ejection fraction. No symptoms related to it. No interventions required. Symptoms and possible developing cardiomyopathy were discussed. She understands and agrees to management. Follow-up echocardiogram in 3 years' time. She is advised to call me with any new symptoms. (2) HTN (hypertension): Code(s): I10 - Essential (primary) hypertension Qualifiers: Hypertension type: primary hypertension Qualified Code(s): I10 - Essential (primary) hypertension Plan: Hypertension with hypertensive heart disease. Clinically doing well with good blood pressure control. No signs or symptoms of heart failure. Importance of good blood pressure control was discussed advised to monitor blood pressure at home maintain a log. Low-salt diet was discussed. Stress mitigation strategies to be pursued. (3) PVCs (premature ventricular contractions): Code(s): I49.3 - Ventricular premature depolarization Plan: Prior history of PVCs but currently no symptoms. Continue metoprolol therapy. Avoidance of stimulants was discussed. No other specific pharmacotherapy needed. Will follow up in the clinic in 1 year's time, sooner p.r.n.. Thank you for allowing me to partake in her care Coding Level of Care Code Est Pt Level 4 (72678) Diagnoses Left bundle branch block I44.7 HTN (hypertension) I10 Hypertension type: primary hypertension PVCs (premature ventricular contractions) I49.3 CPT Codes EKG - CPT: 00608-[id number], Complete ([id number])
[2023-04-15 10:40] VITALS: BP 126/74; PULSE 84; BMI 20.3
== END 2023-04-15 11:06 | disposition home or self-care (01) ==
PROVIDERS: Visit Provider Internal Medicine Cardiovascular Disease
DX: I44.7 Left bundle-branch block, unspecified (principal); I10 Essential (primary) hypertension; I49.3 Ventricular premature depolarization
CPT/HCPCS: 93010; 99214

== ENCOUNTER → 2023-04-15 10:34 | Outpatient (BNVA) | payer MEDICARE, SELFPAY | PROVIDERS: Visit Provider Internal Medicine Cardiovascular Disease | DX: I44.7 Left bundle-branch block, unspecified (principal); I49.3 Ventricular premature depolarization; I10 Essential (primary) hypertension | CPT/HCPCS: 93005; 99212 ==

== ENCOUNTER 2024-04-19 15:46 | Emergency (ER) | payer MEDICARE, SELFPAY ==
--- NOTE | ~2024-04-19 | CT_ITS ---
CLINICAL HISTORY: headache, HTN CT head without contrast Comparison: CT/REG/SR - BRAIN WO IV CONTRAST [id number] - 09/26/19 10:57 EDT Findings: No intra-axial mass, midline shift, hydrocephalus, or acute hemorrhage. No significant atrophy-like change or white matter disease. The visualized paranasal sinuses and mastoid air cells are normal. The orbits are within normal limits. No skull fracture. IMPRESSION: 1. No acute intracranial findings. This document has been electronically signed by: Solo Galeas MD on 04/19/2024 18:50:39
[2024-04-19 16:14] VITALS: BP 170/91; PULSE 88; RESP 20; TEMP 36.8; O2SAT 97; BMI 19.5
--- NOTE | 2024-04-19 16:20 | ECG_ITS ---
Test Reason : htn Blood Pressure : */* mmHG Vent. Rate : 84 BPM Atrial Rate : 84 BPM P-R Int : 188 ms QRS Dur : 142 ms QT Int : 390 ms P-R-T Axes : 75 -18 100 degrees QTcB Int : 460 ms Normal sinus rhythm Left bundle branch block Abnormal ECG When compared with ECG of 30-Sep-2020 12:05, No significant change was found Referred By: Agus Wolf Electronically Signed By: ISABEL GRIFFIN
--- NOTE | 2024-04-19 16:20 | ED_ITS ---
HPI - General Adult General Chief complaint: General Medical Stated complaint: high bp / + heart condition Time Seen by Provider: 04/19/24 21:24 Source: patient Mode of arrival: ambulatory History of Present Illness ED Provider: HPI narrative: Patient's history of chronic hypertension on valsartan 40 mg daily metoprolol 50 mg daily and amlodipine 5 mg twice a day comes here as for last 2 weeks noticed blood pressure on the higher range systolic and 190s and diastolic in 100 been taking 25 mg of metoprolol p.r.n. as needed today after she took the medication blood pressure was still elevated Related Data Home Medications ?Medication ?Instructions ?Recorded ?Confirmed calcium 600 mg (as 1 tab PO BID 04/10/21 04/15/23 carbonate)-vitamin D3 10 mcg (400 unit) tablet Previous Rx's ?Medication ?Instructions ?Recorded amlodipine 5 mg tablet 5 mg PO BID #60 tabs 04/10/21 valsartan 40 mg tablet 40 mg PO DAILY #90 tabs 09/23/23 metoprolol succinate 50 mg 50 mg PO DAILY #90 tabs 01/24/24 tablet,extended release 24 hr Allergies Allergy/AdvReac Type Severity Reaction Status Date / Time No Known Allergies Allergy Intermediate UNKNOWN Verified 04/19/24 16:17 [NO KNOWN ALLERGIES] Review of Systems 2 Review of Systems: Yes all other systems are reviewed and are negative [facility] Past Medical History Medical History PVCs (premature ventricular contractions) HTN (hypertension) Left bundle branch block Family History Family History Father No problems noted. Mother No problems noted. Social History Social History Alcohol intake: current Alcohol intake frequency: 0-2 drinks per day Alcohol type: beer Advance Directives: No Advance Directives Information Provided: Yes Do you have a plan to hurt others: No Plan Physical Exam ED Vital Signs: Vital Signs - 24 hr 04/19/24 21:05 04/19/24 21:59 04/19/24 22:20 Temperature 98.1 F 98.4 F Pulse Rate 80 75 75 Respiratory Rate 16 18 Blood Pressure 155/89 H 166/84 H 166/84 H Pulse Oximetry 98 98 Oxygen Delivery Method Room Air Room Air BMI result Body Mass Index 19.5 Appearance: Alert. Oriented X3. No acute distress. Eyes: PERRLA, No Nystagmus ENT: Pharynx normal. Oral Mucosa moist Neck: Normal inspection. Neck supple. CVS: Normal heart rate and rhythm. Pulses normal. Respiratory: No respiratory distress. Equal air entry bilateral, no wheezing/rales/rhonchi Abdomen: Soft and nontender. Bowel sounds are present, no mass palpable, no CVA tenderness Skin: Skin warm and dry. Normal skin color. Normal skin turgor. Extremities: No lower extremity edema. No calf tenderness Neuro: Oriented X 3. No motor deficit. No sensory deficit.No cerebellar signs , cranial nerves II-XII intact Course Course Course Narrative: RME: 74-year-old female presents to the ED for elevated blood pressure for the past couple of days with slight headache. Patient denies any chest pain or shortness of breath. Patient states compliant with the high blood pressure medications. NIH score is 0. Labs EKG head CT scan ordered Medications Administered Discontinued Medications Generic Name Dose Route Start Last Admin Trade Name Freq PRN Reason Stop Dose Admin Amlodipine Besylate 5 mg 04/19/24 21:59 04/19/24 22:08 Amlodipine Besylate 5 Mg Tablet PO 04/19/24 22:00 5 mg ONCE ONE Administration Protocol Medical Decision Making Medical Decision Making [facility] Narrative: Patient advised to continue her medication advised to follow up with flexible shaft winder Lab Data [facility] Lab Attestation statement: I reviewed the patient's lab results. 04/19/24 16:35 04/19/24 18:13 Labs: Lab Results 04/19/24 04/19/24 Range/Units 16:35 18:13 WBC 6.0 (4.8-10.8) X10*3/uL RBC 4.25 (4.20-5.50) X10*6/uL Hgb 12.5 (12.0-16.0) g/dl Hct 35.3 L (37.0-47.0) % MCV 83.1 (80.0-98.0) fL MCH 29.4 (27.0-33.0) pg MCHC 35.4 H (31.0-35.0) g/dl RDW 11.9 (11.0-16.0) % Plt Count 292 (160-400) X10*3/uL MPV 8.1 L (9.4-12.3) fL Immature Gran % (Auto) 0.2 (0.0-0.4) % Neut % (Auto) 66.2 (45-73) % Lymph % (Auto) 25.6 (20-40) % [place] % (Auto) 6.3 (2-11) % Eos % (Auto) 1.5 (0-4) % Baso % (Auto) 0.2 (0-2) % Lymph # (Auto) 1.5 (1.2-4.9) X10*3/uL [place] # (Auto) 0.4 (0.1-1.2) X10*3/uL Eos # (Auto) 0.1 (0.0-0.4) X10*3/uL Baso # (Auto) 0.0 (0.0-0.2) X10*3/uL Abs Immat Gran (auto) 0.01 (0.00-0.03) X10*3/uL Absolute Neuts (auto) 4.0 (2.0-8.3) x10*3/uL Absolute Nucleated RBC 0.000 (0.0-0.012) X10*3/uL Nucleated RBC % (auto) 0.0 (0.0-0.2) /100WBC PT 11.2 (10.9-12.4) SEC INR 1.0 (0.9-1.1) APTT 31.5 (26.0-36.8) SEC Sodium 138 (135-145) mmol/L Potassium 4.2 (3.3-5.1) mmol/L Chloride 105 (96-108) mmol/L Carbon Dioxide 24 (22-29) mmol/L Anion Gap 13 (12-20) BUN 22 H (9-16) mg/dL Creatinine 1.05 (0.5-1.4) mg/dL Estim Creat Clear Calc 40.0 Estimated GFR 51 Random Glucose 110 (60-115) mg/dL Calcium 9.6 (8.4-10.2) mg/dL Total Bilirubin 0.6 (0.0-1.0) mg/dL AST 22 (5-31) U/L ALT 16 (0-31) U/L Alkaline Phosphatase 77 (39-117) U/L Troponin I High Sens < 2.7 4.6 D (<3.5-17.0) ng/L Total Protein 7.9 (6.5-8.0) g/dL Albumin 4.1 (3.5-5.0) g/dL Discharge Plan Discharge Clinical Impression: HTN (hypertension) Qualifiers: Hypertension type: primary hypertension Qualified Code(s): I10 - Essential (primary) hypertension Patient Disposition: Home, Self-Care Instructions: Chronic Hypertension (ED) Additional Instructions: Continue blood pressure medication as prescribed by cardiology Take half tablet of metoprolol as needed for blood pressure higher than 140/90 You may have to increase the dose of valsartan to 80 mg daily discuss this with your flexible shaft winder Prescriptions: No Action valsartan 40 mg tablet 40 mg PO DAILY Qty: 90 3RF metoprolol succinate 50 mg tablet extended release 24 hr 50 mg PO DAILY Qty: 90 3RF calcium carbonate-vitamin D3 600 mg-10 mcg (400 unit) tablet 1 tab PO BID amlodipine 5 mg tablet 5 mg PO BID Qty: 60 0RF Interventions: ED Discharge Assessment Last Done: 04/19/24 22:20 Discharge Date/Time: 04/19/24 22:27 Print Language: Tajik
[2024-04-19 16:40] LABS: MANUAL DIFF FLAG NO
[2024-04-19 16:41] LABS: Basophils Percent Auto 0.2 % (0-2); Eosinophils Absolute Auto 0.1 X10*3/uL (0.0-0.4); Eosinophils Percent Auto 1.5 % (0-4); Hematocrit 35.3 % (37.0-47.0); Hemoglobin 12.5 g/dl (12.0-16.0); Imm Gran Abs Auto 0.01 X10*3/uL (0.00-0.03); Imm Gran Pct Auto 0.2 % (0.0-0.4); Lymphocytes Absolute Auto 1.5 X10*3/uL (1.2-4.9); Lymphocytes Percent Auto 25.6 % (20-40); Mean Corpuscular HGB Conc 35.4 g/dl (31.0-35.0); Mean Corpuscular Hemoglobin 29.4 pg (27.0-33.0); Mean Corpuscular Volume 83.1 fL (80.0-98.0); Mean Platelet Volume 8.1 fL (9.4-12.3); Monocytes Absolute Auto 0.4 X10*3/uL (0.1-1.2); Monocytes Percent Auto 6.3 % (2-11); Neutrophils Percent Auto 66.2 % (45-73); Platelet Count 292 X10*3/uL (160-400); Red Blood Count 4.25 X10*6/uL (4.20-5.50); Red Cell Distribution Width 11.9 % (11.0-16.0)
[2024-04-19 16:48] LABS: Prothrombin Time 11.2 SEC (10.9-12.4)
[2024-04-19 16:51] LABS: Partial Thromboplastin Time 31.5 SEC (26.0-36.8)
[2024-04-19 17:11] LABS: Troponin-I High Sensitivity < 2.7 ng/L (<3.5-17.0)
[2024-04-19 18:33] LABS: Alanine Aminotransferase 16 U/L (0-31); Albumin Level 4.1 g/dL (3.5-5.0); Alkaline Phosphatase 77 U/L (39-117); Anion Gap 13 (12-20); Aspartate Amino Transferase 22 U/L (5-31); Bilirubin Total 0.6 mg/dL (0.0-1.0); Blood Urea Nitrogen 22 mg/dL (9-16); Calcium 9.6 mg/dL (8.4-10.2); Carbon Dioxide 24 mmol/L (22-29); Chloride 105 mmol/L (96-108); Estimated Glomerular Filt Rate 51; Glucose Random 110 mg/dL (60-115); Potassium 4.2 mmol/L (3.3-5.1); Sodium 138 mmol/L (135-145); Total Protein 7.9 g/dL (6.5-8.0)
[2024-04-19 18:40] LABS: Troponin-I High Sensitivity 4.6 ng/L (<3.5-17.0)
[2024-04-19 21:05] VITALS: BP 155/89; PULSE 80; RESP 16; TEMP 36.7; O2SAT 98
[2024-04-19 21:59] VITALS: BP 166/84; PULSE 75
[2024-04-19] MEDS: amLODIPine Besylate 5 MG TABLET PO (22:08)
[2024-04-19 22:20] VITALS: BP 166/84; PULSE 75; RESP 18; TEMP 36.9; O2SAT 98
== END 2024-04-19 22:27 | disposition home or self-care (01) ==
PROVIDERS: Physician Assistant; Emergency Provider Internal Medicine; PCP Family Medicine
DX: R51.9 Headache, unspecified (principal); I10 Essential (primary) hypertension; I44.7 Left bundle-branch block, unspecified; R94.31 Abnormal electrocardiogram [ECG] [EKG]; Z51.81 Encounter for therapeutic drug level monitoring; Z79.899 Other long term (current) drug therapy
CPT/HCPCS: 36415; 70450; 80053; 84484; 85025; 85610; 85730; 93005; 99284

== ENCOUNTER → 2024-04-19 16:20 | Outpatient (BNV) | payer MEDICARE, SELFPAY | PROVIDERS: Emergency Provider Internal Medicine; PCP Family Medicine; Visit Provider Internal Medicine | DX: I44.7 Left bundle-branch block, unspecified (principal) | CPT/HCPCS: 93010 ==

== ENCOUNTER → 2024-04-19 16:22 | Outpatient (BNV) | payer MEDICARE, SELFPAY | PROVIDERS: PCP Family Medicine; Visit Provider Radiology Diagnostic Radiology | DX: R51.9 Headache, unspecified (principal) | CPT/HCPCS: 70450 ==

== ENCOUNTER 2024-04-21 10:33 | Outpatient (AMB) | payer MEDICARE, SELFPAY ==
[2024-04-21 10:40] VITALS: BP 126/74; PULSE 76; BMI 19.6
--- NOTE | 2024-04-21 10:40 | MHC.OFFVIS ---
Vital Signs 04/21/24 10:40 Height 5 ft 6 in Weight 121 lb 4.068 oz BMI 19.6 BP 126/74 Blood Pressure Location Lt brachial Position Sitting Pulse 76 Intake Visit Reasons: 1 yr f/up Intake Note: 1 year follow-up had ekg at the ED last week bp went up to 200/100 heart rate was high c/o headache that day [employer] Required: No Allergies No Known Allergies [NO KNOWN ALLERGIES] Allergy (Intermediate, Verified 04/19/24 16:17) UNKNOWN Medication List - Last Reconciled 04/21/24 by Rl Sahw MD amlodipine 5 mg PO BID calcium carbonate-vitamin D3 600 mg-10 mcg (400 unit) 1 tab PO BID PRN metoprolol succinate ER 50 mg PO DAILY valsartan 40 mg PO DAILY HPI Comments Details: Kalina comes for an urgent visit, quite anxious about recent ED presentation with significantly elevated blood pressure. She says she was in usual state of health and on Saturday afternoon started noticing some pressure in her head and then took her blood pressure which then was noted to be elevated. It continued to rise and had also feeling of rapid heart rate, she was very anxious at that point time came to the emergency room. She says systolic blood pressure at home was as high as 200 systolic. She then came to the emergency room and was evaluated. Has serial blood work as well as EKG and CTA of the head done. Everything was normal. No treatment was provided. Subsequently the blood pressure came down and she was released on the same regimen as before. She says since then she has not had similar symptoms. Today her blood pressure is extremely well controlled. She was no current other symptoms with exertion. Denies any exertional chest pain or shortness of breath. She does not identify any clear reasons but says that she recently changed her water from her usual bottled water to drinking from the tap. She was since then switch to drinking bottled water again. Denies any high salt diet. Denies any high level of personal stress. FOR[facility]LY [facility], LATER [facility] Medical History PVCs (premature ventricular contractions) HTN (hypertension) Left bundle branch block Family History Father No problems noted. Mother No problems noted. Social History Alcohol intake: current Alcohol intake frequency: 0-2 drinks per day Alcohol type: beer Review of Systems Const Denies chills, Denies fatigue, Denies fever(s), Denies frequent falls, Denies weakness, Denies weight gain and Denies weight loss ENT Denies dizziness Card Denies chest pain, Denies leg edema, Denies lightheadedness, Denies palpitations, Denies dyspnea, Denies dyspnea on exertion, Denies orthopnea and Denies other (loss of consciousness) Resp Denies cough, Denies dyspnea and Denies dyspnea on exertion GI Denies hematochezia and Denies change in stool character Musc Denies abnormal gait, Denies muscle weakness, Denies numbness, Denies radiating pain into limb and Denies tingling Neuro Denies abnormal gait, Denies dizziness, Denies frequent falls, Denies numbness, Denies tingling and Denies weakness Endo Denies fatigue and Denies palpitations Physical Exam Vital Signs: Last Vital Signs Pulse 76 04/21/24 10:40 BP 126/74 04/21/24 10:40 BMI result Body Mass Index 19.6 Const General: cooperative, comfortable, no acute distress, alert, awake, Physically active, anxious and well groomed Nutritional Appearance: thin Orientation/consciousness: patient oriented x3 Limitations: no limitations Neck Neck: Yes trachea midline, Yes supple and Yes no JVD Resp Effort & Inspection: normal respiratory effort Auscultation: clear to auscultation bilaterally Cardio Jugular venous distension: no JVD Palpation: normal PMI Rate: regular rate Rhythm: regular rhythm Heart sounds: S1 normal heart sound present and S2 normal heart sound present GI Auscultation: normal bowel sounds Skin General skin exam: no rashes or lesions noted Neuro General: patient oriented x3 and no focal motor deficits Extrem General: Yes no clubbing, cyanosis or edema Psych Appearance: grossly normal Assessment & Plan Assessment & Plan (1) HTN (hypertension): Code(s): I10 - Essential (primary) hypertension Category: Medical Qualifiers: Hypertension type: primary hypertension Qualified Code(s): I10 - Essential (primary) hypertension Plan: Hypertension with recent episode of significantly elevated blood pressure without any obvious triggers except for change in her drinking water. I have advised her to maintain a log over the next 2 weeks multiple times a day measuring her blood pressure. It is possible that this could be related to change in his water with [place] higher mineral content. At this point time given that her blood pressure is within normal limits I have not made any changes to regimen. Will make changes if her blood pressure is elevated on her serial measurements at home. This was discussed with her. Meanwhile I have advised her to participate in stress mitigation strategies. Reduce salt intake in his diet. (2) PVCs (premature ventricular contractions): Code(s): I49.3 - Ventricular premature depolarization Category: Medical Plan: Prior history of PVCs highly symptomatic with recent elevated heart rate and palpitation most likely related to anxiety related to high blood pressure. Otherwise she is not having any significant symptoms. Will continue metoprolol therapy. Avoidance of stimulants was discussed. (3) Left bundle branch block: Code(s): I44.7 - Left bundle-branch block, unspecified Category: Medical Plan: Left bundle-branch block which is chronic and stable. No changes. No new symptoms. Does not warrant any treatment or any testing at this point time. Will follow up in the clinic in 1 year's time, sooner p.r.n.. Thank you for allowing me to partake in her care Coding Level of Care Code Est Pt Level 4 (41694) Complex EM visit Add On G2211 Diagnoses HTN (hypertension) I10 Hypertension type: primary hypertension PVCs (premature ventricular contractions) I49.3 Left bundle branch block I44.7
== END 2024-04-21 11:05 | disposition home or self-care (01) ==
LOC: HO.HCS 10:34
PROVIDERS: Visit Provider Internal Medicine Cardiovascular Disease
DX: I10 Essential (primary) hypertension (principal); I49.3 Ventricular premature depolarization; I44.7 Left bundle-branch block, unspecified
CPT/HCPCS: 99214; G2211

== ENCOUNTER → 2024-04-21 10:33 | Outpatient (BNVA) | payer MEDICARE, SELFPAY | PROVIDERS: Visit Provider Internal Medicine Cardiovascular Disease | DX: I10 Essential (primary) hypertension (principal); I49.3 Ventricular premature depolarization; I44.7 Left bundle-branch block, unspecified | CPT/HCPCS: 99212 ==